=== PATIENT | female | born 1995 | race Caucasian/White ===

== ENCOUNTER 2019-12-09 18:43 | Emergency (ER) | payer SELFPAY ==
[~2019-12-09] VITALS: Ht 147.3 cm; Wt 95.3 kg
--- NOTE | 2019-12-09 18:50 | Emergency Department Note ---
History of Present Illnes History of Present Illness Chief Complaint: General Medicine Complaints History of Present Illness This is a 24 year old female to the ED for "constipation " and shortness of breath one day prior to arrival. Onset (how long ago): day(s) (1) Radiation: Reports abdomen Severity: mild Onset quality: gradual Duration (how long): day(s) (1) Timing of current episode: constant Progression: unchanged Chronicity: new Context: Denies recent illness, Denies recent surgery, Denies recent immobilization, Denies recent travel, Denies trauma/injury, Denies new medications, Denies hx of DVT/PE, Denies non-compliance w/ medications, Denies other Relieving factors: none Exacerbating factors: none Associated symptoms: Reports shortness of breath Treatments prior to arrival: none Past Medical/Family History Physician Review I have reviewed the patient's past medical and family history. Any updates have been documented here. Past Medical History Recent Fever: No Clinical Suspicion of Infectio: No New/Unexplained Change in Ment: No Past Medical History: Hypertension, Asthma Other Surgery: R knee sx ENT sx at 10 yoa Social History Smoking Cessation: Never Smoker Alcohol Use: None Any Illegal Drug Use: No Review of Systems Review of Systems Respiratory: Reports dyspnea Gastrointestinal: Reports abdominal pain, Reports constipation Physical Exam Related Data Allergies: Coded Allergies: No Known Allergies (Unverified , 12/09/19) Triage Vital Signs Vital Signs Date Time Temp Pulse Resp B/P (MAP) Pulse Ox O2 Delivery O2 Flow Rate FiO2 12/09/19 18:47 98.1 74 22 157/109 100 Room Air Vital signs reviewed: Yes Physical Exam CONSTITUTIONAL Constitutional: Present obese HENT HENT: Present normocephalic, Present atraumatic, Present oropharynx clear/moist, Present nose normal HENT L/R: Present left ext ear normal, Present right ext ear normal EYES Eyes: Reports PERRL, Reports conjunctivae normal NECK Neck: Present ROM normal PULMONARY Pulmonary: Present effort normal, Present breath sounds normal CARDIOVASCULAR Cardiovascular: Present regular rhythm, Present heart sounds normal, Present capillary refill normal, Present normal rate GASTROINTESTINAL Abdominal: Present tender (gen abd pain) GENITOURINARY Genitourinary: Present exam deferred SKIN Skin: Present warm, Present dry MUSCULOSKELETAL Musculoskeletal: Present ROM normal NEUROLOGICAL Neurological: Present alert, Present oriented x 3, Present no gross motor or sensory deficits PSYCHOLOGICAL Psychological: Present mood/affect normal, Present judgement normal Results Laboratory Lab results reviewed: Yes Laboratory comments Laboratory Tests Test 12/09/19 18:55 Urine Color Yellow (YELLOW) Urine Clarity Hazy (CLEAR) Urine pH 6.5 (5 - 7) Urine Specific [place] >=1.030 (1.010-1.025) Urine Protein 2+ (NEGATIVE) Urine Glucose (UA) Negative (NEGATIVE) Urine Ketones Negative (NEGATIVE) Urine Blood Negative (NEGATIVE) Urine Nitrite Negative (NEGATIVE) Urine Bilirubin Negative (NEGATIVE) Urine Urobilinogen 0.2 mg/dL (0.2 - 1) Urine Leukocyte Esterase Negative (NEGATIVE) Urine RBC 0-5 /HPF (0-5) Urine WBC 0-5 /HPF (0-5) Urine Epithelial Cells Moderate /LPF (NONE) Urine Bacteria Few /HPF (NONE) Urine Test Negative (NEGATIVE) Imaging Imaging results reviewed: Yes Impressions [place] [address] Patient Name: ABIMAEL MARTIN MR #: [id number] : 1995 Age/Sex: 24/F Req #: [id number] Adm Physician: Ordered by: CHEL POTTER DO Report #: [id number] Location: ER Room/Bed: Procedure: [id number] CT/CT ABDOMEN/PELVIS WO Exam Date: 12/09/19 Exam Time: 1944 REPORT STATUS: Signed EXAM: CT Abdomen and Pelvis WITHOUT contrast INDICATION: ^abd pain ^[id number] ^1944 COMPARISON: None. TECHNIQUE: Abdomen and pelvis were scanned utilizing a multidetector helical scanner from the lung base to the pubic symphysis without administration of IV contrast. Absence of intravenous contrast decreases sensitivity for detection of focal lesions and vascular pathology. Coronal and sagittal reformations were obtained. Routine protocol was performed. IV CONTRAST: None ORAL CONTRAST: None COMPLICATIONS: None RADIATION DOSE: Total DLP: 706.72 mGy*cm Estimated effective dose: (DLP x 0.015 x size factor) mSv CTDIvol has been reviewed. It is below the limits set by the Radiation Protocol Committee (RPC). FINDINGS: LINES and TUBES: None. LOWER THORAX: Unremarkable HEPATOBILIARY: Unenhanced liver is unremarkable. No biliary ductal dilation. GALLBLADDER: No radio-opaque stones or sludge. No wall thickening. SPLEEN: No splenomegaly. PANCREAS: No focal masses or ductal dilatation. ADRENALS: No adrenal nodules KIDNEYS/URETERS: No hydronephrosis. Limited for evaluation of renal parenchyma without intravenous contrast. No stones. GI TRACT: No abnormal distention, wall thickening, or evidence of bowel obstruction. Appendix is normal. Small hiatal hernia. PELVIC ORGANS/BLADDER: Unremarkable. LYMPH NODES: Prominent right lower quadrant lymph nodes. VESSELS: Unremarkable. PERITONEUM / RETROPERITONEUM: No free air or fluid. BONES: Unremarkable. SOFT TISSUES: Unremarkable. IMPRESSION: 1. Limited study without intravenous contrast. 2. Prominent right lower quadrant ileocolic lymph nodes, could represent mesenteric adenitis in the appropriate clinical context. Otherwise, no definite evidence of acute inflammatory process in the abdomen/pelvis. Signed by: Dr. Tal Shoemaker MD on 12/09/2019 8:49 PM Dictated By: TAL SHOEMAKER MD 48 Transcribed By: DURGA on 12/09/192048 COPY TO: CHEL POTTER DO~ [place] [address] Patient Name: ABIMAEL MARTIN MR #: [id number] : 1995 Age/Sex: 24/F Req #: [id number] Adm Physician: Ordered by: CHEL POTTER DO Report #: [id number] Location: ER Room/Bed: Procedure: [id number] DX/CHEST 2 VIEWS Exam Date: Exam Time: REPORT STATUS: Signed EXAMINATION: CHEST 2 VIEWS INDICATION: ^sob COMPARISON: None FINDINGS: PA and lateral views TUBES and LINES: None. LUNGS: Lungs are well inflated. There is no evidence of pneumonia or pulmonary edema. PLEURA: No pleural effusion or pneumothorax. HEART AND MEDIASTINUM: The cardiomediastinal silhouette is unremarkable. BONES AND SOFT TISSUES: No acute osseous lesion. Soft tissues are unremarkable. UPPER ABDOMEN: No free air under the diaphragm. IMPRESSION: No acute thoracic abnormality. Signed by: Dr. Tal Shoemaker MD on 12/09/2019 8:25 PM Dictated By: TAL SHOEMAKER MD 24 Transcribed By: DURGA on 12/09/192024 COPY TO: CHEL POTTER DO~ Procedures 12 Lead ECG Interpretation ECG Interpretation : ECG: ECG 1 [employer]: Interpreted by ED physician Date: Dec 09, 2019 Time: 19:00 Prior ECG tracings: reviewed Rhythm: sinus rhythm Rate: normal BPM: 67 QRS axis: normal ST segments normal: Yes T waves normal: Yes Clinical Impression: normal ECG Assessment & Plan Medical Decision Making MDM Diff Dx : asthma, PE, constipation, appendicitis, UTI, kidney stone, Assessment & Plan Final Impression: (1) Dyspnea (2) Mesenteric adenitis Depart Disposition: HOME, SELF-CARE CHEL POTTER DO Dec 09, 2019 18:50
[2019-12-09 19:27] LABS: BILIRUBIN,URINE NEGATIVE (NEGATIVE); CLARITY,URINE HAZY (CLEAR); COLOR,URINE YELLOW (YELLOW); KETONES,URINE NEGATIVE (NEGATIVE); LEUKOCYTE ESTERASE ,URINE NEGATIVE (NEGATIVE); NITRITE,URINE NEGATIVE (NEGATIVE); PROTEIN,URINE DIPSTICK 2+ (NEGATIVE); URINE UROBILINOGEN 0.2 mg/dL (0.2 - 1)
[2019-12-09 19:28] LABS: PREGNANCY TEST, URINE NEGATIVE (NEGATIVE)
[2019-12-09 19:33] LABS: BACTERIA,URINE FEW /HPF; EPITHELIAL CELLS,URINE MODERATE /LPF; RBC,URINE 0-5 /HPF (0-5); WBC,URINE (MAN) 0-5 /HPF (0-5)
--- NOTE | 2019-12-09 20:29 | Diagnostic Imaging Report ---
EXAMINATION: CHEST 2 VIEWS INDICATION: ^sob COMPARISON: None FINDINGS: PA and lateral views TUBES and LINES: None. LUNGS: Lungs are well inflated. There is no evidence of pneumonia or pulmonary edema. PLEURA: No pleural effusion or pneumothorax. HEART AND MEDIASTINUM: The cardiomediastinal silhouette is unremarkable. BONES AND SOFT TISSUES: No acute osseous lesion. Soft tissues are unremarkable. UPPER ABDOMEN: No free air under the diaphragm. IMPRESSION: No acute thoracic abnormality. Signed by: Dr. Tal Shoemaker MD on 12/09/2019 8:25 PM
--- NOTE | 2019-12-09 20:53 | Diagnostic Imaging Report ---
EXAM: CT Abdomen and Pelvis WITHOUT contrast INDICATION: ^abd pain ^[id number] ^1944 COMPARISON: None. TECHNIQUE: Abdomen and pelvis were scanned utilizing a multidetector helical scanner from the lung base to the pubic symphysis without administration of IV contrast. Absence of intravenous contrast decreases sensitivity for detection of focal lesions and vascular pathology. Coronal and sagittal reformations were obtained. Routine protocol was performed. IV CONTRAST: None ORAL CONTRAST: None COMPLICATIONS: None RADIATION DOSE: Total DLP: 706.72 mGy*cm Estimated effective dose: (DLP x 0.015 x size factor) mSv CTDIvol has been reviewed. It is below the limits set by the Radiation Protocol Committee (RPC). FINDINGS: LINES and TUBES: None. LOWER THORAX: Unremarkable HEPATOBILIARY: Unenhanced liver is unremarkable. No biliary ductal dilation. GALLBLADDER: No radio-opaque stones or sludge. No wall thickening. SPLEEN: No splenomegaly. PANCREAS: No focal masses or ductal dilatation. ADRENALS: No adrenal nodules KIDNEYS/URETERS: No hydronephrosis. Limited for evaluation of renal parenchyma without intravenous contrast. No stones. GI TRACT: No abnormal distention, wall thickening, or evidence of bowel obstruction. Appendix is normal. Small hiatal hernia. PELVIC ORGANS/BLADDER: Unremarkable. LYMPH NODES: Prominent right lower quadrant lymph nodes. VESSELS: Unremarkable. PERITONEUM / RETROPERITONEUM: No free air or fluid. BONES: Unremarkable. SOFT TISSUES: Unremarkable. IMPRESSION: 1. Limited study without intravenous contrast. 2. Prominent right lower quadrant ileocolic lymph nodes, could represent mesenteric adenitis in the appropriate clinical context. Otherwise, no definite evidence of acute inflammatory process in the abdomen/pelvis. Signed by: Dr. Tal Shoemaker MD on 12/09/2019 8:49 PM
--- OUTSIDE RECORDS SUMMARY | 2019-12-10 16:45 | XMS REPORT | Continuity of Care Document ---
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 available. Location: TH. No acute infiltrates, effusion or congestion is noted. No pneumothorax. The cardiac and mediastinal silhouette are within normal limits. IMPRESSION: No acute infiltrates, effusion or congestion. at 1909 Reported and signed by: Lowell Pruett M.D. CC: Kelsey Freeman MD Technologist: Irlanda Bell Trnscrpt Data: 06/08/2019 (1909) t.SDR. Orig Print D/T: S: 06/08/2019 (1912) PAGE 1 Signed Report BASIC METABOLIC [id number] 18:20:00* Test Item Value Reference Range Interpretation Comments SODIUM (test code = NA) 141 mmol/L 136-145 N POTASSIUM (test code = K) 4.5 mmol/L 3.5-5.1 N CHLORIDE (test code = CL) 105 mmol/L 101-109 N CARBON DIOXIDE (test code = CO2) 29.8 mmol/L 21-32 N ANION GAP (test code = GAP) 11 mmol/L 10-20 N GLUCOSE (test code = GLU) 119 mg/dL 74-106 H BLOOD UREA NITROGEN (test code = BUN) 15 mg/dL 3-21 N GLOMERULAR FILTRATION RATE (test code = GFR) > 60 mL/min >=60 Estimated GFR by using Modified MDRD formula.Chronic kidney disease is defined as either kidney damageor GFR <60 mL/min/1.73 m2 for >3 months. CREATININE (test code = CREAT) 1.00 mg/dL 0.55-1.3 N BUN/CREATININE RATIO (test code = BUN/CREA) 15.0 10-20 N CALCIUM (test code = CA) 9.0 mg/dL 8.4-10.2 N HEPATIC FUNCTION [id number] 18:20:00* Test Item Value Reference Range Interpretation Comments TOTAL PROTEIN (test code = PROT) 7.2 g/dL 6.5-8.4 N ALBUMIN (test code = ALB) 3.5 g/dL 3.4-4.8 N GLOBULIN (test code = GLOB) 3.7 G/DL 1-10 N ALBUMIN/GLOBULIN RATIO (test code = A/G) 0.95 RATIO 0.75-1.50 N BILIRUBIN TOTAL (test code = BILT) 0.40 mg/dL 0.0-1.0 N BILIRUBIN DIRECT (test code = BILD) 0.10 mg/dL 0.0-0.30 N SGOT/AST (test code = AST) 12 U/L 6-32 N SGPT/ALT (test code = ALT) 16 U/L 12-78 N N ote: Change in REFERENCE RANGE due to new reagent method. ALKALINE PHOSPHATASE TOTAL (test code = ALKP) 84 U/L 38-126 N HCG SERUM [id number] 18:20:00* Test Item Value Reference Range Interpretation Comments HCG SERUM QUAL (test code = HCGQL) NEGATIVE NEGATIVE This HCGQL test is NOT applicable for MALE patients.Check with nurse about probable order error.If Tumor Marker Test needed, nurse should order test "HCGTU"(Test #550.98621) BASIC METABOLIC [id number] 18:19:00* Test Item Value Reference Range Interpretation Comments SODIUM (test code = NA) 141 mmol/L 136-145 N POTASSIUM (test code = K) 4.5 mmol/L 3.5-5.1 N CHLORIDE (test code = CL) 105 mmol/L 101-109 N CARBON DIOXIDE (test code = CO2) 29.8 mmol/L 21-32 N ANION GAP (test code = GAP) 11 mmol/L 10-20 N GLUCOSE (test code = GLU) 119 mg/dL 74-106 H BLOOD UREA NITROGEN (test code = BUN) 15 mg/dL 3-21 N GLOMERULAR FILTRATION RATE (test code = GFR) > 60 mL/min >=60 Estimated GFR by using Modified MDRD formula.Chronic kidney disease is defined as either kidney damageor GFR <60 mL/min/1.73 m2 for >3 months. CREATININE (test code = CREAT) 1.00 mg/dL 0.55-1.3 N BUN/CREATININE RATIO (test code = BUN/CREA) 15.0 10-20 N CALCIUM (test code = CA) 9.0 mg/dL 8.4-10.2 N HEPATIC FUNCTION [id number] 18:19:00* Test Item Value Reference Range Interpretation Comments TOTAL PROTEIN (test code = PROT) 7.2 g/dL 6.5-8.4 N ALBUMIN (test code = ALB) 3.5 g/dL 3.4-4.8 N GLOBULIN (test code = GLOB) 3.7 G/DL 1-10 N ALBUMIN/GLOBULIN RATIO (test code = A/G) 0.95 RATIO 0.75-1.50 N BILIRUBIN TOTAL (test code = BILT) 0.40 mg/dL 0.0-1.0 N BILIRUBIN DIRECT (test code = BILD) 0.10 mg/dL 0.0-0.30 N SGOT/AST (test code = AST) 12 U/L 6-32 N SGPT/ALT (test code = ALT) 16 U/L 12-78 N N ote: Change in REFERENCE RANGE due to new reagent method. ALKALINE PHOSPHATASE TOTAL (test code = ALKP) 84 U/L 38-126 N HCG SERUM [id number] 18:19:00* Test Item Value Reference Range Interpretation Comments HCG SERUM QUAL (test code = HCGQL) NEGATIVE BASIC METABOLIC [id number] 18:06:00* Test Item Value Reference Range Interpretation Comments SODIUM (test code = NA) 141 mmol/L 136-145 N POTASSIUM (test code = K) 4.5 mmol/L 3.5-5.1 N CHLORIDE (test code = CL) 105 mmol/L 101-109 N CARBON DIOXIDE (test code = CO2) 29.8 mmol/L 21-32 N ANION GAP (test code = GAP) 11 mmol/L 10-20 N GLUCOSE (test code = GLU) 119 mg/dL 74-106 H BLOOD UREA NITROGEN (test code = BUN) 15 mg/dL 3-21 N GLOMERULAR FILTRATION RATE (test code = GFR) > 60 mL/min >=60 Estimated GFR by using Modified MDRD formula.Chronic kidney disease is defined as either kidney damageor GFR <60 mL/min/1.73 m2 for >3 months. CREATININE (test code = CREAT) 1.00 mg/dL 0.55-1.3 N BUN/CREATININE RATIO (test code = BUN/CREA) 15.0 10-20 N CALCIUM (test code = CA) 9.0 mg/dL 8.4-10.2 N HEPATIC FUNCTION [id number] 18:06:00* Test Item Value Reference Range Interpretation Comments TOTAL PROTEIN (test code = PROT) gram/dL 6.4-8.2 ALBUMIN (test code = ALB) g/dL 3.4-5.0 GLOBULIN (test code = GLOB) g/dL 2.7-4.2 ALBUMIN/GLOBULIN RATIO (test code = A/G) 0.75-1.50 BILIRUBIN TOTAL (test code = BILT) mg/dL 0.2-1.2 BILIRUBIN DIRECT (test code = BILD) mg/dL 0.0-0.20 SGOT/AST (test code = AST) IUnit/L 15-37 SGPT/ALT (test code = ALT) U/L 10-69 ALKALINE PHOSPHATASE TOTAL (test code = ALKP) IUnit/L 45-117 HCG SERUM [id number] 18:06:00* Test Item Value Reference Range Interpretation Comments HCG SERUM QUAL (test code = HCGQL) NEGATIVE CBC W/O [id number] 17:57:00* Test Item Value Reference Range Interpretation Comments WHITE BLOOD CELL (test code = WBC) 10.6 K/mm3 4.5-12.5 N RED BLOOD CELL (test code = RBC) 4.61 mill/mm3 3.7-5.2 N HEMOGLOBIN (test code = HGB) 13.3 gram/dL 11.5-15.5 N HEMATOCRIT (test code = HCT) 38.7 % 36.0-46.0 N MEAN CELL VOLUME (test code = MCV) 83.9 fL 80-98 N MEAN CELL HGB (test code = MCH) 28.9 picogram 27.0-33.0 N MEAN CELL HGB CONCETRATION (test code = MCHC) 34.4 gram/dL 33.0-36. 0 N RED CELL DISTRIBUTION WIDTH (test code = RDW) 12.9 % 11.6-16. 2 N RED CELL DISTRIBUTION WIDTH SD (test code = RDW-SD) 40.3 fL 37 .0-51.0 N PLATELET COUNT (test code = PLT) 300 K/mm3 150-450 N MEAN PLATELET VOLUME (test code = MPV) 8.9 fL 6.7-11.0 N CBC W/AUTO [id number] 11:08:00* Test Item Value Reference Range Interpretation Comments WHITE BLOOD CELL (test code = WBC) 7.2 K/mm3 4.5-12.5 N RED BLOOD CELL (test code = RBC) 4.54 mill/mm3 3.7-5.2 N HEMOGLOBIN (test code = HGB) 13.1 gram/dL 11.5-15.5 N HEMATOCRIT (test code = HCT) 38.6 % 36.0-46.0 N MEAN CELL VOLUME (test code = MCV) 85.0 fL 80-98 N MEAN CELL HGB (test code = MCH) 28.9 picogram 27.0-33.0 N MEAN CELL HGB CONCETRATION (test code = MCHC) 33.9 gram/dL 33.0-36. 0 N RED CELL DISTRIBUTION WIDTH (test code = RDW) 12.3 % 11.6-16. 2 N RED CELL DISTRIBUTION WIDTH SD (test code = RDW-SD) 38.1 fL 37 .0-51.0 N PLATELET COUNT (test code = PLT) 324 K/mm3 150-450 N MEAN PLATELET VOLUME (test code = MPV) 9.5 fL 6.7-11.0 N NEUTROPHIL % (test code = NT%) 64.3 % 39.0-69.0 N IMMATURE GRANULOCYTE % (test code = IG%) 0.4 % 0.0-5.0 N LYMPHOCYTE % (test code = LY%) 28.6 % 25.0-55.0 N MONOCYTE % (test code = MO%) 3.6 % 0.0-10.0 N EOSINOPHIL % (test code = EO%) 2.4 % 0.0-5.0 N BASOPHIL % (test code = BA%) 0.7 % 0.0-1.0 N NUCLEATED RBC % (test code = NRBC%) 0.0 % 0-0 N NEUTROPHIL # (test code = NT#) 4.60 K/mm3 1.8-7.7 N IMMATURE GRANULOCYTE # (test code = IG#) 0.03 x10 3/uL 0-0.03 N LYMPHOCYTE # (test code = LY#) 2.05 K/mm3 1.0-5.0 N MONOCYTE # (test code = MO#) 0.26 K/mm3 0-0.8 N EOSINOPHIL # (test code = EO#) 0.17 K/mm3 0.0-0.5 N BASOPHIL # (test code = BA#) 0.05 K/mm3 0.0-0.2 N NUCLEATED RBC # (test code = NRBC#) 0.00 K/mm3 0.0-0.1 N MANUAL DIFF REQUIRED (test code = MDIFF) NO - US TRANSVAGINAL NON [id number] 09:07:00 Name: ABIMAEL MARTIN [facility] : 1995 Age/S: 23 / F [address] Unit #: [id number] Loc: [place] [address] Phys: Estephania Arias NP Acct: [id number] Dis Date: Status: ADM IN PHONE #: [phone] Exam Date: 11/08/2018839 FAX #: [phone] Reason: ABD PAIN, VAGINAL BLEEDING EXAMS: CPT CODE: [id number] [place] [address] REASON FOR EXAM: ABD PAIN, VAGINAL BLEEDING EXAM ORDER DATE: 11/08/2018 7:47 AM Attending Erica: Estephania Arias NP PROCEDURE: - US PELVIS COMPLETE, - DUP AB/PEL/SC COMP, - US TRANSVAGINAL NON OB Technique: Grayscale images, color doppler, and spectral doppler images of the uterus and ovaries were obtained utilizing A transabdominal and transvaginal approach. Comparison study: None FINDINGS: Uterus: size: 17.3 x 3.4 x 4.6 cm using transabdominal measurements echogenicity/masses: None. Normal myometrial echogenicity endometrium: 5.5 mm Right ovary: size: 3.7 x 2.5 x 1.8 cm cysts/masses: None Doppler findings: Normal arterial and venous wavef orms. adnexal masses: None Left ovary: size: 3.2 x 2.0 x 2.5 cm cysts/masses: None Doppler findings: Normal arterial and v enous waveforms. adnexal masses: None Free fluid: No fluid s een in the cul-de-sac. IMPRESSION: Sonographic ally unremarkable pelvis at 0907 Reported and signed by: Domingo Cadet PAGE 1 Signed Report (CONTINUE D) Name: ABIMAEL MARTIN [facility] : 1995 Age/S: 23 / F [address] [facility] Unit #: [id number] Loc: [place] [address] Phys: Estephania Cruz NP Acct: [id number] Dis Date: Status: ADM IN PHONE # : [phone] Exam Date: 11/08/2018839 FAX #: Reason: ABD PAIN, VAGINAL BLEEDING EXAMS: CPT CODE: [id number] [place] [address] <Continued> CC: Bea Ch MD; Estephania Arias NP Technologist: CHILO KIM RT(R),RDPR Trnscb Date/Time: 11/08/2018 (906) t.SDR.RR31 Orig Print D/T: S: 11/08/2018 (909) Probe: [id number] PAGE 2 Signed Report - DUP AB/PEL/SC [id number] 09:07:00 Name: LEANNABIMAEL CASANOVA [facility] : 1995 Age/S: 23 / F [address] [facility] Unit #: [id number] Loc: [place] [address] Phys: Estephania Arias NP Acct: [id number] Dis Date: Status: ADM IN PHONE #: [phone] Exam Date: 11/08/2018839 FAX #: [phone] Reason: ABD PAIN, VAGINAL BLEEDING EXAMS: CPT CODE: [id number] DUP AB/PEL/SC COMP 06964 REASON FOR EXAM: ABD PAIN, VAGINAL BLEEDING EXAM ORDER DATE: 11/08/2018 7:47 AM Attending MWilfredoDWilfredo: Estephania Arias NP PROCEDURE: - US PELVIS COMPLETE, - DUP AB/PEL/SC COMP, - US TRANSVAGINAL NON OB Technique: Grayscale images, color doppler, and spectral doppler images of the uterus and ovaries were obtained utilizing A transabdominal and transvaginal approach. Comparison study: None FINDINGS: Uterus: size: 17.3 x 3.4 x 4.6 cm using transabdominal measurements echogenicity/masses: None. Normal myometrial echogenicity endometrium: 5.5 mm Right ovary: size: 3.7 x 2.5 x 1.8 cm cysts/masses: None Doppler findings: Normal arterial and venous waveforms. adnexal masses: None Left ovary: size: 3.2 x 2.0 x 2.5 cm cysts/masses: None Doppler findings: Normal arterial and v enous waveforms. adnexal masses: None Free fluid: No fluid s een in the cul-de-sac. IMPRESSION: Sonographic ally unremarkable pelvis at 0907 Reported and signed by: Domingo Cadet PAGE 1 Signed Report (CONTINUE D) Name: ABIMAEL MARTIN [facility] : 1995 Age/S: 23 / F [address] Unit #: [id number] Loc: [place] [address] Phys: Estephania Cruz NP Acct: [id number] Dis Date: Status: ADM IN PHONE # : [phone] Exam Date: 11/08/2018 0840 FAX #: Reason: ABD PAIN, VAGINAL BLEEDING EXAMS: CPT CODE: [id number] DUP AB/PEL /SC COMP 46364 <Continued> CC: Bea Ch MD; Estephania Arias NP Technologist: CHILO KIM RT(R),[facility] Date/Time: 11/08/2018 (906) t.ALLIER.RR31 Orig Print D/T: S: 11/08/2018 (909) Probe: PAGE 2 Signed Report - US PELVIS [id number] 09:07:00 Name: ABIMAEL MARTIN [facility] : 1995 Age/S: 23 / F [address] Unit #: [id number] Loc: [place] [address] Phys: Estephania Arias NP Acct: [id number] Dis Date: Status: ADM IN PHONE #: [phone] Exam Date: 11/08/2018 0840 FAX #: [phone] Reason: ABD PAIN, VAGINAL BLEEDING EXAMS: CPT CODE: [id number] US PELVIS COMPLETE 48309 REASON FOR EXAM: ABD PAIN, VAGINAL BLEEDING EXAM ORDER DATE: 11/08/2018 7:47 AM Attending Erica: Estephania Arias NP PROCEDURE: - US PELVIS COMPLETE, - DUP AB/PEL/SC COMP, - US TRANSVAGINAL NON OB Technique: Grayscale images, color doppler, and spectral doppler images of the uterus and ovaries were obtained utilizing A transabdominal and transvaginal approach. Comparison study: None FINDINGS: Uterus: size: 17.3 x 3.4 x 4.6 cm using transabdominal measurements echogenicity/masses: None. Normal myometrial echogenicity endometrium: 5.5 mm Right ovary: size: 3.7 x 2.5 x 1.8 cm cysts/masses: None Doppler findings: Normal arterial and venous waveforms. adnexal masses: None Left ovary: size: 3.2 x 2.0 x 2.5 cm cysts/masses: None Doppler findings: Normal arterial and v enous waveforms. adnexal masses: None Free fluid: No fluid s een in the cul-de-sac. IMPRESSION: Sonographic ally unremarkable pelvis at 0907 Reported and signed by: Domingo Cadet PAGE 1 Signed Report (CONTINUE D) Name: ABIMAEL MARTIN [facility] : 1995 Age/S: 23 / F [address] [facility] Unit #: [id number] Loc: [place] [address] Phys: Estephania Cruz NP Acct: [id number] Dis Date: Status: ADM IN PHONE # : [phone] Exam Date: 11/08/2018 0840 FAX #: Reason: ABD PAIN, VAGINAL BLEEDING EXAMS: CPT CODE: [id number] US PELVIS COMPLETE 79901 <Continued> CC: Bea Ch MD; Estephania Arias NP Technologist: CHILO KIM RT(R),RDMS Trnscb Date/Time: 11/08/2018 (906) t.ALLIER.RR31 Orig Print D/T: S: 11/08/2018 (909) Probe: PAGE 2 Signed Report HEPATIC FUNCTION [id number] 08:59:00* Test Item Value Reference Range Interpretation Comments TOTAL PROTEIN (test code = PROT) 7.6 gram/dL 6.4-8.2 N ALBUMIN (test code = ALB) 4.0 g/dL 3.4-5.0 N GLOBULIN (test code = GLOB) 3.6 gram/dL 2.7-4.2 N ALBUMIN/GLOBULIN RATIO (test code = A/G) 1.1 0.75-1.50 N BILIRUBIN TOTAL (test code = BILT) 0.60 mg/dL 0.0-1.0 N BILIRUBIN DIRECT (test code = BILD) 0.14 mg/dL 0.0-0.20 N SGOT/AST (test code = AST) 23 IUnit/L 15-37 N SGPT/ALT (test code = ALT) 37 IUnit/L 12-78 N ALKALINE PHOSPHATASE TOTAL (test code = ALKP) 73 IUnit/L 45-117 N Note change in reference range due to change in reagent. CBC W/O [id number] 08:52:00* Test Item Value Reference Range Interpretation Comments WHITE BLOOD CELL (test code = WBC) TEST NOT PERFORMED K/mm3 4.5-12. 5 Previously reported result: 3.6 K/ag3Nzjdqz by: QI on 11/08/18:139225 0850: WBC previously reported as: 3.6 L K/mm3 PROTHROMBIN [id number] 08:31:00* Test Item Value Reference Range Interpretation Comments PROTHROMBIN TIME PATIENT (test code = PTP) 11.6 seconds 9.0-14.0 N INTERNATIONAL NORMAL RATIO (test code = INR) 1.0 0.8-1.2 N The therapeutic range for oral anticoagulant therapy formost indications is an international normalized ratio (INR)of between 2.0 and 3.0. The recommended therapeutic INRrange for various clinical situations is listed below: Clinical Situation INR range Pulmonary e mbolism treatment (2.0-3.0)Venous thrombosis treatmentVenous thrombosis prophylaxis (high risk surgery)Prevention of systemic embolism from: Acute myocardial infarction Valvular heart disease Atrial fibrillation Mechanical prosthetic heart valves (2.5-3.5) IS PATIENT ON ANTICOAGULANTS? NTHROMBOPLASTIN TIME [id number] 08:31:00* Test Item Value Reference Range Interpretation Comments THROMBOPLASTIN TIME PARTIAL (test code = PTT) 33.8 seconds 25.0-36. 5 N IS PATIENT ON ANTICOAGULANTS? [id number] 08:29:00* Test Item Value Reference Range Interpretation Comments FIBRINOGEN (test code = FIB) 324 mg/dL 200-400 N BASIC METABOLIC [id number] 07:16:00* Test Item Value Reference Range Interpretation Comments SODIUM (test code = NA) 137 mmol/L 136-145 N POTASSIUM (test code = K) 5.6 mmol/L 3.5-5.1 H CHLORIDE (test code = CL) 108.0 mmol/L 98-107 H CARBON DIOXIDE (test code = CO2) 18.0 mmol/L 21-32 L ANION GAP (test code = GAP) 16.6 10-20 N GLUCOSE (test code = GLU) 110 mg/dL 74-106 H BLOOD UREA NITROGEN (test code = BUN) 13 mg/dL 7-18 N GLOMERULAR FILTRATION RATE (test code = GFR) > 60 mL/min >=60 Estimated GFR by using Modified MDRD formula.Chronic kidney disease is defined as either kidney damageor GFR <60 mL/min/1.73 m2 for >3 months. CREATININE (test code = CREAT) 0.90 mg/dL 0.55-1.02 N Note change in reference range due to change in reagent. BUN/CREATININE RATIO (test code = BUN/CREA) 14.4 10-20 N CALCIUM (test code = CA) 9.1 mg/dL 8.5-10.1 N HCG SERUM [id number] 07:16:00* Test Item Value Reference Range Interpretation Comments HCG SERUM BETA (test code = HCG) < 1.0 mIU/mL 0-3 N INTERPRETATION:B-HCG LEVELS <5 SHOULD BE CONSIDERED "NEGATIVE." *WHEN BODERLINE RESULTS ARE ENCOUNTERED,PATIENT SAMPLESSHOULD BE REDRAWN 48 HOURS. 0-1 WEEKS AFTER CONCEPTION 5-50 MIU/ML1-2 WEEKS AFTER CONCEPTION 50-500 MIU/ML2-3 WEEKS AFTER CONCEPTION 100 -5,000 MIU/ML3-4 WEEKS AFTER CONCEPTION 500-10,000 MIU/ML4-5 WEEKS AFTER CONCEPTION 1000 -50,000 MIU/ML5-6 WEEKS AFTER CONCEPTION 10,000-100,000 MIU/ML6-8 WEEKS AFTER CONCEPTION 15,000- 200,000 MIU/ML2-3 MONTHS AFTER CONCEPTION 10,000-100,000 MIU/ML BASIC METABOLIC [id number] 07:08:00* Test Item Value Reference Range Interpretation Comments SODIUM (test code = NA) 137 mmol/L 136-145 N POTASSIUM (test code = K) 5.6 mmol/L 3.5-5.1 H CHLORIDE (test code = CL) 108.0 mmol/L 98-107 H CARBON DIOXIDE (test code = CO2) mmol/L 21-32 ANION GAP (test code = GAP) 10-20 GLUCOSE (test code = GLU) mg/dL 74-106 BLOOD UREA NITROGEN (test code = BUN) mg/dL 7-18 GLOMERULAR FILTRATION RATE (test code = GFR) mL/min >=60 CREATININE (test code = CREAT) mg/dL 0.55-1.02 BUN/CREATININE RATIO (test code = BUN/CREA) 10-20 CALCIUM (test code = CA) mg/dL 8.5-10.1 HCG SERUM [id number] 07:08:00* Test Item Value Reference Range Interpretation Comments HCG SERUM BETA (test code = HCG) mIU/mL 0-3 CBC W/O [id number] 07:04:00* Test Item Value Reference Range Interpretation Comments WHITE BLOOD CELL (test code = WBC) 3.6 K/mm3 4.5-12.5 L RED BLOOD CELL (test code = RBC) 4.75 mill/mm3 3.7-5.2 N HEMOGLOBIN (test code = HGB) 14.1 gram/dL 11.5-15.5 N HEMATOCRIT (test code = HCT) 41.0 % 36.0-46.0 N MEAN CELL VOLUME (test code = MCV) 86.3 fL 80-98 N MEAN CELL HGB (test code = MCH) 29.7 picogram 27.0-33.0 N MEAN CELL HGB CONCETRATION (test code = MCHC) 34.4 gram/dL 33.0-36. 0 N RED CELL DISTRIBUTION WIDTH (test code = RDW) 12.3 % 11.6-16. 2 N PLATELET COUNT (test code = PLT) 16 K/mm3 150-450 LL Results called to [id number] by V.LAB.WJC 11/08/18 0704Critical results verified and read back by Nurse? Y MEAN PLATELET VOLUME (test code = MPV) 13.3 fL 6.7-11.0 H
== END 2019-12-09 21:14 | disposition home or self-care (01) ==
LOC: ER 18:49
DX: R06.00 Dyspnea, unspecified (principal); I88.0 Nonspecific mesenteric lymphadenitis
CPT/HCPCS: 71046; 74176; 81001; 81025; 93005; 99283